=== PATIENT | male | born 1990 | race American Indian/Alaskan Native ===

== ENCOUNTER 2018-08-07 13:43 | Emergency (ER) | payer OTHER ==
[2018-08-07 14:22] VITALS: BP 128/84
--- NOTE | 2018-08-07 15:36 | Emergency Department Report ---
Chief Complaint: Abdominal Pain Stated Complaint: VOMITING/ABD CRAMPING Time Seen by Provider: 08/07/18 15:35 - HPI History of Present Illness: LLQ PAIN N/V VSS NONTOXIC - Exam Vital Signs: Vital Signs 08/07/18 14:20 Temperature 98.4 F Pulse Rate 60 Respiratory 18 Rate Blood Pressure 128/84 [right] O2 Sat by Pulse 99 Oximetry MSE screening note: Focused history and physical exam performed. Due to findings the following was ordered: ED Medical Decision Making - Lab Data Result diagrams: 08/07/18 15:52 ED Disposition for MSE Condition: Stable
[2018-08-07 15:54] LABS: Bacteria,Urine 1+ /HPF (Negative); Bilirubin,Urine NEG (Negative); Blood,Urine NEG (Negative); Color,Urine Yellow (Yellow); Mucus,Urine FEW /HPF; Protein,Urine <15 mg/dL mg/dL (Negative); Urobilinogen,Urine < 2.0 mg/dL (<2.0)
[2018-08-07 16:07] LABS: Basophils % (Auto) 0.5 % (0.0-1.8); Eosinophils # (Auto) 0.1 K/mm3 (0.0-0.4); Eosinophils % (Auto) 2.6 % (0.0-4.3); Hematocrit 46.7 % (35.5-45.6); Hemoglobin 16.1 gm/dl (11.8-15.2); Lymphocytes # (Auto) 1.8 K/mm3 (1.2-5.4); Lymphocytes % (Auto) 36.9 % (13.4-35.0); Mean Corpuscular HGB Conc 34 % (32-34); Mean Corpuscular Volume 91 fl (84-94); Monocytes # (Auto) 0.7 K/mm3 (0.0-0.8); Monocytes % (Auto) 14.7 % (0.0-7.3); Platelet Count 265 K/mm3 (140-440); Red Blood Count 5.13 M/mm3 (3.65-5.03); Red Cell Distribution Width 14.6 % (13.2-15.2)
[2018-08-07 16:21] LABS: Alanine Aminotransferase 42 units/L (7-56); Albumin 4.8 g/dL (3.9-5); BUN/Creatinine Ratio 10; Blood Urea Nitrogen 11 mg/dL (9-20); Calcium 10.5 mg/dL (8.4-10.2); Hemolysis Index 15
[2018-08-07 16:32] LABS: Bilirubin,Direct < 0.2 mg/dL (0-0.2)
== END 2018-08-07 20:27 | disposition left against medical advice (07) ==
LOC: ED 13:43
DX: R10.9 Unspecified abdominal pain (principal); R11.10 Vomiting, unspecified; Z53.21 Procedure and treatment not carried out due to patient leaving prior to being seen by health care provider
CPT/HCPCS: 36415; 80048; 80076; 81001; 83690; 85025

== ENCOUNTER 2020-01-13 13:03 | Emergency (ER) | payer OTHER ==
[2020-01-13 13:29] VITALS: BP 134/72
--- NOTE | 2020-01-13 15:56 | Emergency Department Report ---
Chief Complaint: Medical Clearance Stated Complaint: FEVER Time Seen by Provider: 01/13/20 15:52 - HPI History of Present Illness: 29-year-old -[place] male presents to the emergency room stating he needs a work excuse. Patient reports that he had a temperature of 99.6 on Monday at his job and they told him he could not come back to work without a work excuse. Patient states that he has no fever no chills no nausea no vomiting no chest pain diarrhea no loss of taste or smell. - Exam Vital Signs: Vital Signs 01/13/20 13:27 Temperature 99.0 F Pulse Rate 85 Respiratory 18 Rate Blood Pressure 134/72 O2 Sat by Pulse 97 Oximetry Physical Exam: Patient alert and oriented x3 no acute distress nontoxic in appearance Nonlabored breathing Ambulatory without difficulties. MSE screening note: Focused history and physical exam performed. Due to findings the following was ordered: 29-year-old -[place] male presents to the emergency room stating he needs a work excuse. Patient reports that he had a temperature of 99.6 on Monday at his job and they told him he could not come back to work without a work excuse. Patient states that he has no fever no chills no nausea no vomiting no chest pain diarrhea no loss of taste or smell. Patient is stable enough to be discharged. ED Disposition for MSE Disposition: Z- MED SCREENING EXAM-LEFT Is pt being admited?: No Does the pt Need Aspirin: No Condition: Stable Additional Instructions: Recommend COVID-19 testing. Forms: Work/School Release Form(ED)
== END 2020-01-13 16:15 | disposition left against medical advice (07) ==
LOC: ED 13:03
DX: R50.9 Fever, unspecified (principal); Z53.21 Procedure and treatment not carried out due to patient leaving prior to being seen by health care provider

== ENCOUNTER 2021-01-14 13:41 | Emergency (ER) | payer SELFPAY ==
[2021-01-14 14:30] VITALS: BP 106/60
--- NOTE | 2021-01-14 15:20 | Emergency Department Report ---
ED General Adult HPI - General Chief complaint: Chest Pain Stated complaint: CHESTPAIN, CHEST FEELS SWOLLEN Time Seen by Provider: 01/14/21 14:41 Source: patient Mode of arrival: Ambulatory Limitations: No Limitations - History of Present Illness Initial comments: 30 yo AA M pt presents with complaints of right sided chest pain x 5 days. He rates his pain as 3/10 in severity and states it worsens with coughing which has been very intermittent. He denies any hemoptysis, but admits to 4 five hour car rides to and from [place] in the last 3 weeks. He denies any leg pain or swelling or hx of DVT/PE. No personal or family hx of heart disease per pt. patient also denies any shortness of breath, loss of loss of taste/smell, fever/chills/sweats, known recent sick contacts. - Related Data Previous Rx's Medication Instructions Recorded Last Taken Type Naproxen 500 mg PO BID PRN #20 tablet 01/14/21 Unknown Rx Allergies Allergy/AdvReac Type Severity Reaction Status Date / Time No Known Allergies Allergy Unverified 08/07/18 13:49 ED Review of Systems ROS: Stated complaint: CHESTPAIN, CHEST FEELS SWOLLEN Other details as noted in HPI Constitutional: denies: chills, diaphoresis, fever, malaise Respiratory: cough. denies: orthopnea, SOB at rest, stridor Cardiovascular: chest pain. denies: edema, syncope Gastrointestinal: denies: abdominal pain, nausea, vomiting Musculoskeletal: denies: joint swelling, arthralgia Neurological: denies: headache, numbness, paresthesias, abnormal gait Hematological/Lymphatic: denies: swollen glands ED Past Medical Hx - Social History Smoking Status: Never Smoker Substance Use Type: None - Medications Home Medications: Home Medications Medication Instructions Recorded Confirmed Last Taken Type Naproxen 500 mg PO BID PRN #20 tablet 01/14/21 Unknown Rx ED Physical Exam - General Limitations: No Limitations General appearance: alert, in no apparent distress - Head Head exam: Present: atraumatic, normocephalic - Eye Eye exam: Present: normal appearance - Neck Neck exam: Present: normal inspection - Respiratory Respiratory exam: Present: normal lung sounds bilaterally, chest wall tenderness (Tenderness to palpation noted to the right parasternal chest wall without obvious deformities or skin changes). Absent: respiratory distress - Cardiovascular Cardiovascular Exam: Present: regular rate, normal rhythm. Absent: systolic murmur, diastolic murmur, rubs, gallop - GI/Abdominal GI/Abdominal exam: Present: soft. Absent: tenderness - Extremities Exam Extremities exam: Absent: calf tenderness (No swelling or tenderness to palpation noted to lower extremity) - Neurological Exam Neurological exam: Present: alert, oriented X3, normal gait - Psychiatric Psychiatric exam: Present: normal affect, normal mood - Skin Skin exam: Present: warm, dry, intact, normal color. Absent: rash, cyanosis, diaphoretic ED Course Vital Signs 01/14/21 14:29 Temperature 98.6 F Pulse Rate 76 Respiratory 19 Rate Blood Pressure 106/60 [Right] O2 Sat by Pulse 100 Oximetry ED Medical Decision Making - Lab Data Result diagrams: 01/14/21 15:34 01/14/21 15:34 Lab Results 01/14/21 01/14/21 01/14/21 Range/Units 15:34 15:34 15:34 WBC 4.3 L (4.5-11.0) K/mm3 RBC 5.22 H (3.65-5.03) M/mm3 Hgb 16.1 H (11.8-15.2) gm/dl Hct 47.0 H (35.5-45.6) % MCV 90 (84-94) fl MCH 31 (28-32) pg MCHC 34 (32-34) % RDW 14.0 (13.2-15.2) % Plt Count 277 (140-440) K/mm3 Lymph % (Auto) 33.0 (13.4-35.0) % [place] % (Auto) 14.1 H (0.0-7.3) % Eos % (Auto) 4.2 (0.0-4.3) % Baso % (Auto) 2.4 H (0.0-1.8) % Lymph # (Auto) 1.4 (1.2-5.4) K/mm3 [place] # (Auto) 0.6 (0.0-0.8) K/mm3 Eos # (Auto) 0.2 (0.0-0.4) K/mm3 Baso # (Auto) 0.1 (0.0-0.1) K/mm3 Seg Neutrophils % 46.3 (40.0-70.0) % Seg Neutrophils # 2.0 (1.8-7.7) K/mm3 D-Dimer 290.27 H (0-234) ng/mlDDU Sodium 139 (137-145) mmol/L Potassium 4.7 (3.6-5.0) mmol/L Chloride 103.7 (98-107) mmol/L Carbon Dioxide 28 (22-30) mmol/L Anion Gap 12 mmol/L BUN 9 (9-20) mg/dL Creatinine 1.0 (0.8-1.3) mg/dL Estimated GFR > 60 ml/min BUN/Creatinine Ratio 9 % Glucose 91 (75-100) mg/dL Calcium 10.0 (8.4-10.2) mg/dL Total Bilirubin 0.40 (0.1-1.2) mg/dL AST 33 (5-40) units/L ALT 29 (7-56) units/L Alkaline Phosphatase 108 (35-129) units/L Troponin T < 0.010 (0.00-0.029) ng/mL Total Protein 8.3 H (6.3-8.2) g/dL Albumin 4.7 (3.9-5) g/dL Albumin/Globulin Ratio 1.3 % - EKG Data EKG shows normal: sinus rhythm Rate: normal - EKG Data Interpretation: other (Right atrial enlargement) - Radiology Data Radiology results: report reviewed - Medical Decision Making 30 yo AA M pt presents with complaints of right sided chest pain x 5 days. He rates his pain as 3/10 in severity and states it worsens with coughing which has been very intermittent. He denies any hemoptysis, but admits to 4 five hour car rides to and from [place] in the last 3 weeks. He denies any leg pain or swelling or hx of DVT/PE. No personal or family hx of heart disease per pt. patient also denies any shortness of breath, loss of loss of taste/smell, fever/chills/sweats, known recent sick contacts. No acute abnormalities noted on CBC or CMP. Troponin is normal. Chest x-ray is normal. D-dimer done given PERC score = 1 from travel history. Dimer noted to be mildly positive at 290. Discussed need for CTA chest with patient, patient declines imaging. He continues to deny any shortness of breath. Discussed risks versus benefits of CTA chest and possibility of PE given history, patient continues to decline imaging. Exam is more consistent with costochondritis, however cannot rule out PE. Discussed this in detail with patient. Treatment for costochondritis given along with very strict return precautions, patient verbalizes understanding. He is to follow-up with primary care in 3 days. Patient is well-appearing at this time and his vitals are normal. He is to disc harge Critical care attestation.: If time is entered above; I have spent that time in minutes in the direct care of this critically ill patient, excluding procedure time. ED Disposition Clinical Impression: Right-sided chest pain Disposition: HOME / SELF CARE / HOMELESS Is pt being admited?: No Condition: Stable Instructions: Nonspecific Chest Pain, Adult, Costochondritis Additional Instructions: Please apply an ice pack to the chest wall 10 to 15 minutes at a time 3 times a day for at least 2 to 3 days Prescriptions: Naproxen 500 mg PO BID PRN #20 tablet PRN Reason: pain Referrals: PRIMARY CARE, [Referring] - 2-3 Days Heart Score - HEART Score History: Slightly suspicious EKG: Normal Age: < 45 Risk factors: No known risk factors Troponin: < normal limit HEART Score: 0 - EKG Read Time Time EKG Completed: 15:00 EKG Read Time: 15:05 - Critical Actions Critical Actions: 0-3 pts:0.9-1.7%risk of adverse cardiac event.Candidate for discharge
--- NOTE | 2021-01-14 15:37 | XRay Report ---
XR chest routine 2V INDICATION / CLINICAL INFORMATION: right sided chest pain. COMPARISON: None available. FINDINGS: SUPPORT DEVICES: None. HEART /PULMONARY VASCULATURE: No significant abnormality. LUNGS / PLEURA: No significant pulmonary or pleural abnormality. No pneumothorax. ADDITIONAL FINDINGS: No significant additional findings. IMPRESSION: 1. No acute findings. Signer Name: Ibrahima Lainez MD Signed: 01/14/2021 3:33 PM Workstation Name: [id number]
[2021-01-14 15:44] LABS: Basophils # (Auto) 0.1 K/mm3 (0.0-0.1); Basophils % (Auto) 2.4 % (0.0-1.8); Eosinophils # (Auto) 0.2 K/mm3 (0.0-0.4); Eosinophils % (Auto) 4.2 % (0.0-4.3); Hemoglobin 16.1 gm/dl (11.8-15.2); Lymphocytes # (Auto) 1.4 K/mm3 (1.2-5.4); Mean Corpuscular HGB Conc 34 % (32-34); Mean Corpuscular Volume 90 fl (84-94); Monocytes # (Auto) 0.6 K/mm3 (0.0-0.8); Monocytes % (Auto) 14.1 % (0.0-7.3); Platelet Count 277 K/mm3 (140-440); Red Blood Count 5.22 M/mm3 (3.65-5.03)
[2021-01-14 16:10] LABS: Alanine Aminotransferase 29 units/L (7-56); Albumin 4.7 g/dL (3.9-5); BUN/Creatinine Ratio 9; Blood Urea Nitrogen 9 mg/dL (9-20); Hemolysis Index 13
--- NOTE | 2021-01-18 14:36 | Electrocardiograph Report ---
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
== END 2021-01-14 18:05 | disposition home or self-care (01) ==
LOC: ED 13:41
DX: R07.89 Other chest pain (principal); Z79.899 Other long term (current) drug therapy
CPT/HCPCS: 36415; 71046; 80053; 84484; 85025; 85379; 93005; 99283